=== PATIENT | male | born 1985 | race Caucasian/White ===

== ENCOUNTER 2016-06-09 13:36 | Day surgery (SDC) | payer BC ==
[~2016-06-09] VITALS: Ht 185.4 cm; Wt 96.6 kg
[~2016-06-09 13:36] MED LIST: CITRUCEL500 MG PO; CLARITIN-D 21 TABLET PO; DAILY VALUE1 EACH PO; MEN'S ONE DAIL1 EACH PO; MOBIC7.5 MG PO; MOTRIN600 MG PO; MOTRIN800 MG PO; NASONEX17 GM BOTH NARES; NEXIUM40 MG PO; NORCO 5/3251 TABLET PO; PERCOCET 5/31 TABLET PO; ZOFRAN ODT4 MG PO; ZOFRAN4 MG PO; ZYRTEC10 M3 PO
[2016-06-09 14:16] VITALS: BP 131/75
[2016-06-09] MEDS ORDERED: COLACE100 MG PO (18:19)
[2016-06-09] MEDS ORDERED: PERCOCET 5/31 TABLET PO (18:19)
[2016-06-09 19:45] VITALS: BP 111/65
[2016-06-09 20:45] VITALS: BP 122/65
== END 2016-06-09 21:10 | disposition home or self-care (01) ==
LOC: SDC 13:36
PROC: 0YU64JZ Supplement Left Inguinal Region with Synthetic Substitute, Percutaneous Endoscopic Approach (ICD-10-PCS; principal; 2016-06-09)
DX: K40.90 Unilateral inguinal hernia, without obstruction or gangrene, not specified as recurrent (principal)
CPT/HCPCS: C1727; C1781; J0330; J0690; J1100; J1170; J1885; J2250; J2405; J3010